=== PATIENT | female | born 1950 | race Caucasian/White ===

== ENCOUNTER → 2017-12-12 | Outpatient (CLI) | payer OTHER | END | disposition home or self-care (01) | LOC: CFH 10:08 | PROVIDERS: ATTEND Family Medicine | DX: Z13.820 Encounter for screening for osteoporosis (principal); Z12.31 Encounter for screening mammogram for malignant neoplasm of breast; I65.22 Occlusion and stenosis of left carotid artery; M85.89 Other specified disorders of bone density and structure, multiple sites; I34.8 Other nonrheumatic mitral valve disorders; N95.9 Unspecified menopausal and perimenopausal disorder; R92.1 Mammographic calcification found on diagnostic imaging of breast | CPT/HCPCS: 77063; 77080; 93880; 77067 ==